=== PATIENT | male | born 1955 | race Caucasian/White ===

== ENCOUNTER 2022-02-22 20:07 | Inpatient (IN) | payer MEDICAID, MEDICARE ==
[~2022-02-22] VITALS: Ht 170.2 cm; Wt 107.0 kg
--- NOTE | 2022-02-22 20:21 | NUR ---
MASOUD FROM [facility] FOR TACHYCARDIA HR 121. PATIENT IN BED 12 ON MONITOR AWAITING MD COY.
--- NOTE | 2022-02-22 20:28 | NUR ---
EMT @ BEDSIDE FOR EKG
--- NOTE | 2022-02-22 20:28 | NUR ---
ER [employer] BANKING OFFICER @ BEDSIDE
--- NOTE | 2022-02-22 20:38 | NUR ---
COVID SWAB DONE AND SENT TO LAB
[2022-02-22] MEDS ORDERED: ACETAMINOPHEN 325 MG TABLET ONE (20:59)
[2022-02-22] MEDS ORDERED: ACETAMINOPHEN 325 MG TABLET PO ONE (21:00)
[2022-02-22 21:09] LABS: BASOPHILS # (AUTO) 0.1 K/uL (0.0-0.2); BASOPHILS % (AUTO) 0.4 % (0.0-2.0); EOSINOPHILS % (AUTO) 0.4 % (0.0-6.0); HEMATOCRIT 37 % (39-51); HEMOGLOBIN 11.9 g/dL (13.5-17.5); LYMPHOCYTES # (AUTO) 0.6 K/uL (0.8-4.8); LYMPHOCYTES % (AUTO) 4.3 % (20.0-44.0); MEAN CORPUSCULAR HGB CONC 32 g/dl (31.0-36.0); MEAN CORPUSCULAR VOLUME 90 fL (80-96); MONOCYTES # (AUTO) 0.5 K/uL (0.1-1.30); MONOCYTES % (AUTO) 3.7 % (2.0-12.0); NEUTROPHILS # (AUTO) 12.8 K/uL (1.8-8.9); NEUTROPHILS % (AUTO) 91.2 % (43.0-81.0); PLATELET COUNT (AUTO) 166 K/uL (150-450); RED BLOOD CELL COUNT(AUTO) 4.08 MIL/uL (4.5-6.0)
[2022-02-22 21:43] LABS: ALANINE AMINOTRANSFERASE 15 U/L (12-78); ALBUMIN 3.3 g/dL (3.4-5.0); ALKALINE PHOSPHATASE 82 U/L (46-116); ASPARTATE AMINOTRANSFERASE 14 U/L (15-37); BILIRUBIN,DIRECT 0.1 mg/dL (0.0-0.2); CALCIUM, SERUM 9.1 mg/dL (8.5-10.1); CARBON DIOXIDE 21 mmol/L (21-32); CHLORIDE 101 mmol/L (98-107); CREATININE 1.8 mg/dL (0.6-1.3); GLUCOSE 278 mg/dL (74-106); LIPASE 445 U/L (73-393); POTASSIUM 4.9 mmol/L (3.5-5.1); SODIUM SERUM 134 mmol/L (136-145); TOTAL PROTEIN, SERUM 8.6 g/dL (6.4-8.2); UREA NITROGEN, BLOOD 48 mg/dL (7-18)
[2022-02-22] MEDS ORDERED: IV NS 0.9% 1,000 ML BAG IV ONE ×2 (22:00→23:00)
[2022-02-22] MEDS ORDERED: PIPERACILLIN /TAZOBACTAM 3.375 G in IV D5W 50 ML IV ONE (22:00)
[2022-02-22] MEDS ORDERED: PIPERACILLIN /TAZOBACTAM 3.375 G VIAL IV ONE (22:03)
--- NOTE | 2022-02-22 22:06 | NUR ---
LACTIC ACID 3.8
[2022-02-22 22:30] LABS: BILIRUBIN,TOTAL 0.3 mg/dL (0.2-1.0)
[2022-02-22] MEDS ORDERED: DILTIAZEM HCL 25 MG IV IV ONE (22:30)
[2022-02-22] MEDS ORDERED: DILTIAZEM HCL 25 MG IV ONE (22:32)
[2022-02-22 23:12] LABS: BILIRUBIN,URINE NEGATIVE (NEGATIVE); LEUKOCYTE ESTERASE ,URINE MODERATE (NEGATIVE); NITRITE, URINE POSITIVE (NEGATIVE); PROTEIN,URINE 100 mg/dl (NEGATIVE); UGLUCOSE NEGATIVE (NEGATIVE); UROBILINOGEN,URINE 0.2 EU/dL (0.2)
[2022-02-22 23:13] LABS: PH,URINE >8.5 (5.0-8.0)
[2022-02-22 23:14] LABS: COLOR,URINE YELLOW (YELLOW)
[2022-02-22 23:26] LABS: BACTERIA,URINE Many /HPF (None Seen)
[2022-02-22 23:27] LABS: SQUAMOUS EPITHELIAL CELL,UR None Seen /HPF (None Seen); TRIPLE PHOSPHATE CRYSTAL,UR Many /HPF (None Seen)
[2022-02-23] MEDS ORDERED: MAGNESIUM HYDROXIDE 30 ML UDC PO PRN
[2022-02-23] MEDS ORDERED: ZOLPIDEM TARTRATE 5 MG TABLET PO PRN
[2022-02-23] MEDS ORDERED: MAG HYDROX/AL HYDROX/SIMETH 30 ML UDC PO PRN
[2022-02-23] MEDS ORDERED: PIPERACILLIN /TAZOBACTAM 3.375 G in IV D5W 50 ML IV SCH ×2
[2022-02-23] MEDS ORDERED: Z GUARD REMEDY 4 OZ OINT TP PRN
[2022-02-23] MEDS ORDERED: ONDANSETRON HCL/PF 4 MG/2 ML VIAL IVP PRN
[2022-02-23] MEDS ORDERED: IV NS 0.9% 1,000 ML IV SCH
--- NOTE | 2022-02-23 00:55 | NUR ---
REPORT GIVEN TO CHARGE NURSE
--- NOTE | 2022-02-23 01:10 | NUR ---
PATIENT BEING TRANSFERRED VIA ACLS PROTOCOL.
--- NOTE | 2022-02-23 01:10 | NUR ---
RN NOTES ADMITTED A 66 Y/O MALE PATIENT FROM ER VIA [facility] A/O X1. WITH STALEY CATHETER CONNECTED TO URINE BAG DRAINING YELLOWISH URINE, WITH COLOSTOMY BAG INTACT. WITH IV ACCESS AT R UA MIDLINE #18 PATENT FLUSHES WELL. VITAL SIGNS TAKEN AND RECORDED, FEBRILE 100.1. SAFELY TRANSFER PATIENT TO BED. BODY ASSESSMENT DONE. PICTURE TAKEN. BELONGINGS CHECKED AND RECORD. ALL SAFETY MEASURES IN PLACE AT ALL TIMES. HOB ELEVATED. CALL LIGHT WITHIN REACH. BED ON LOWEST POSITION AND LOCKED. WILL CONTINUE TO MONITOR THE PATIENT
[2022-02-23 01:57] VITALS: BP 115/67
--- NOTE | 2022-02-23 02:20 | NUR ---
RN NOTES LACTIC ACID 3.5
--- NOTE | 2022-02-23 03:28 | NUR ---
RN NOTES LACTIC ACID 3.1
[2022-02-23 04:00] VITALS: BP 117/68
[2022-02-23] MEDS ORDERED: PIPERACILLIN /TAZOBACTAM 3.375 G in IV D5W 50 ML IV ONE (04:00)
[2022-02-23] MEDS ORDERED: PIPERACILLIN /TAZOBACTAM 3.375 G VIAL IV ONE (04:15)
--- NOTE | 2022-02-23 06:45 | NUR ---
RN NOTES PATIENT REMAINS STABLE NO SIGNIFICANT CHANGES. ALL DUE MEDS GIVEN ORDERED. ON IVF NS@ 100CC/HR. STALEY INTACT DRAINING WELL. COLOSTOMY TUBE INTACT AND CHANGES. PATIENT AFEBRILE. ALL SAFETY MEASURES IN PLACE. HOB ELEVATED. CALL LIGHT WITHIN REACH. WILL ENDORSED TO MORNING SHIFT FOR J[facility].
--- NOTE | 2022-02-23 07:35 | NUR ---
RN OPENING NOTE PATIENT RECEIVED IN BED, SLEEPING. PATIENT ON ROOM AIR WITH NO SIGNS OF LABORED BREATHING AT THIS TIME. STALEY CATH IN PLACE, PATENT AND DRAINING CLEAR URINE. COLOSTOMY BAG IN PLACE. RIGHT UA MIDLINE AND RIGHT BASILIC 20G SL IN PLACE RUNNING NS AT 100CC/HR. NO SIGNS OF ACUTE DISTRESS NOTED AT THIS TIME. BED LOCKED AND IN LOWEST POSITION, CALL LIGHT WITHIN REACH, 2 SIDE RAILS UP. WILL CONTINUE TO MONITOR.
[2022-02-23 08:00] VITALS: BP 106/61
[2022-02-23] MEDS: ACETAMINOPHEN 325 MG TABLET PO PRN ×2 (08:29→17:36)
[2022-02-23] MEDS ORDERED: IV NS 0.9% 1,000 ML IV ONE (10:00)
[2022-02-23 12:00] VITALS: BP 144/71
[2022-02-23 12:08] LABS: BASOPHILS % (AUTO) 0.2 % (0.0-2.0); EOSINOPHILS % (AUTO) 0.8 % (0.0-6.0); HEMATOCRIT 31 % (39-51); LYMPHOCYTES # (AUTO) 1.2 K/uL (0.8-4.8); LYMPHOCYTES % (AUTO) 9.2 % (20.0-44.0); MEAN CORPUSCULAR HGB CONC 32 g/dl (31.0-36.0); MEAN CORPUSCULAR VOLUME 90 fL (80-96); MONOCYTES # (AUTO) 0.6 K/uL (0.1-1.30); MONOCYTES % (AUTO) 4.9 % (2.0-12.0); NEUTROPHILS % (AUTO) 84.9 % (43.0-81.0); PLATELET COUNT (AUTO) 140 K/uL (150-450); RED BLOOD CELL COUNT(AUTO) 3.43 MIL/uL (4.5-6.0); WHITE BLOOD COUNT (AUTO) 12.9 K/uL (4.3-11.0)
[2022-02-23 12:21] LABS: CALCIUM, SERUM 8.4 mg/dL (8.5-10.1); CREATININE 1.7 mg/dL (0.6-1.3); MAGNESIUM 1.6 mg/dL (1.8-2.4); POTASSIUM 3.9 mmol/L (3.5-5.1)
[2022-02-23] MEDS: IV NS 0.9% 1,000 ML IV PRN (12:48)
[2022-02-23] MEDS: PIPERACILLIN /TAZOBACTAM 3.375 G in IV D5W 100 ML IV SCH ×2 (12:48→20:53)
[2022-02-23 16:00] VITALS: BP 118/54
--- NOTE | 2022-02-23 18:42 | NUR ---
RN CLOSING NOTE PATIENT REMAINS IN BED, RESTING. PATIENT ON ROOM AIR WITH NO SIGNS OF LABORED BREATHING AT THIS TIME. STALEY CATH IN PLACE, PATENT AND DRAINING CLEAR URINE. COLOSTOMY BAG IN PLACE. RIGHT UA MIDLINE AND RIGHT BASILIC 20G SL IN PLACE RUNNING NS AT 100CC/HR. ALL NEEDS ATTENDED DURING SHIFT. NO SIGNS OF ACUTE DISTRESS NOTED AT THIS TIME. BED LOCKED AND IN LOWEST POSITION, CALL LIGHT WITHIN REACH, 2 SIDE RAILS UP. WILL ENDORSE TO LEAD ORACLE DEVELOPER NURSE.
[2022-02-23 20:00] VITALS: BP 118/57
--- NOTE | 2022-02-23 20:09 | NUR ---
RN NOTE RECEIVED PT IN BED, AWAKE, WATCHING TV AOX2. PT ON TELE MONITOR SHOWS SR WITH HR 72. DENIES ANY CHEST PAIN OR SOB. ERNIE ML PATENT AND INTACT, NS RUNNING 100ML/HR. PT WITH STALEY CATH IN PLACE, DRAINING YELLOW URINE.ALL SAFETY IN PLACE. WILL CONTINUE TO MONITOR.
[2022-02-23] MEDS: DOXYCYCLINE HYCLATE (100 MG) 100 MG TABLET PO SCH (20:55)
--- NOTE | 2022-02-23 23:13 | NUR ---
RN NOTE PT WITH FSBS OF 248. MANUFACTURING COORDINATOR DR ADAM NOTIFIED. PT ON ADMELOG INSULIN SL[facility]ING SCALE AT [facility], PER MD TO CONTINUE MED. CALLED [facility], ADMELOG IS SAME WITH HUMALOG. ORDER NOTED AND CARRIED OUT.
[2022-02-23] MEDS ORDERED: INSULIN LISPRO/ASPART 100 UNIT/ML CARTRIDGE SQ ONE (23:30)
[2022-02-23] MEDS ORDERED: DEXTROSE 50%-WATER 50 ML DISP.SYRIN IV PRN (23:30)
[2022-02-23] MEDS: BLOOD SUGAR DIAGNOSTIC 1 EACH STRIP IN SCH (23:53)
[2022-02-23] MEDS: INSULIN ASPART/LISPRO 100 UNIT/ML CARTRIDGE SQ PRN (23:54)
[2022-02-24] VITALS (7 sets, daily range): BP systolic 108–135; BP diastolic 69–80
[2022-02-24] MEDS: IV NS 0.9% 1,000 ML IV PRN ×3 (00:40→23:55)
[2022-02-24] MEDS: ACETAMINOPHEN 325 MG TABLET PO PRN ×3 (00:40→23:55)
[2022-02-24] MEDS ORDERED: MAGN400O21 PO (05:08)
[2022-02-24] MEDS ORDERED: SENN-18 PO (05:08)
[2022-02-24] MEDS ORDERED: OMEP40CA21 PO (05:08)
[2022-02-24] MEDS ORDERED: LEVO75TA PO (05:08)
[2022-02-24] MEDS ORDERED: HYDR-3980 PO (05:08)
[2022-02-24] MEDS ORDERED: HYDR-4209 PO (05:08)
[2022-02-24] MEDS ORDERED: FERR325T23 PO (05:08)
[2022-02-24] MEDS ORDERED: DOCU-141 PO (05:08)
[2022-02-24] MEDS ORDERED: METF-442 PO (05:08)
[2022-02-24] MEDS ORDERED: MIDO2.5T PO (05:08)
[2022-02-24] MEDS ORDERED: ASCO100058 PO (05:08)
[2022-02-24] MEDS ORDERED: EPOE40007 SQ (05:08)
[2022-02-24] MEDS ORDERED: ASPI-1169 PO (05:08)
[2022-02-24] MEDS ORDERED: RISP1TAB7 PO (05:08)
[2022-02-24] MEDS ORDERED: RISP2TAB5 PO (05:08)
[2022-02-24] MEDS ORDERED: GABA-532 PO (05:08)
[2022-02-24] MEDS: PIPERACILLIN /TAZOBACTAM 3.375 G in IV D5W 100 ML IV SCH ×3 (05:22→20:30)
--- NOTE | 2022-02-24 06:37 | NUR ---
RN NOTE PT AWAKE, NO CHANGES IN LOC NOTED. NOT IN ANY DISTRESS. TOLERATING RA. DENIES PAIN OR ANY SOB. REMAIN ON TELE MONITORING SHOWS SR WITH HR OF 77. REMAIN AFEBRILE. STALEY DRAINING WELL. CHANGED COLOSTOMY BAG. NO S/SX OF HYPO/HYPERGLYCEMIA. WOUND TX DONE, TURNED AND REPOSITIONED. WILL ENDORSE TO NEXT SHIFT NURSE FOR [facility].
[2022-02-24 07:15] LABS: BASOPHILS % (AUTO) 0.3 % (0.0-2.0); EOSINOPHILS % (AUTO) 3.3 % (0.0-6.0); HEMATOCRIT 32 % (39-51); HEMOGLOBIN 10.2 g/dL (13.5-17.5); LYMPHOCYTES # (AUTO) 2.2 K/uL (0.8-4.8); LYMPHOCYTES % (AUTO) 19.9 % (20.0-44.0); MEAN CORPUSCULAR HGB CONC 32 g/dl (31.0-36.0); MEAN CORPUSCULAR VOLUME 90 fL (80-96); MONOCYTES # (AUTO) 0.7 K/uL (0.1-1.30); MONOCYTES % (AUTO) 6.4 % (2.0-12.0); NEUTROPHILS # (AUTO) 7.9 K/uL (1.8-8.9); NEUTROPHILS % (AUTO) 70.1 % (43.0-81.0); PLATELET COUNT (AUTO) 156 K/uL (150-450); RED BLOOD CELL COUNT(AUTO) 3.51 MIL/uL (4.5-6.0); WHITE BLOOD COUNT (AUTO) 11.2 K/uL (4.3-11.0)
--- NOTE | 2022-02-24 07:30 | NUR ---
RN OPENING NOTES RECEIVED PATIENT IN BED, AWAKE, ALERT AND VERBALLY RESPONSIVE. NO SIGNS OF ACUTE DISTRESS NOTED. ON ROM AIR, TOLERATING WELL, NO SOB NOTED, SPO2 98%. ON TELE MONITOR SHOWING SINUS RHYTHM @74. NOTED WITH IV ACCESS ON RIGHT HAND #24G AND RIGHT UPPER ARM MIDLINE RUNNING NS @ 100ML/HR. WITH F/C INTACT DRAINING CLEAR YELLOW URINE. COLOSTOMY BAG IN PLACE, NO OUTPUT AT THIS TIME. SAFETY MEASURES IN PLACE, BED IN LOWEST AND LOCKED POSITION, SR UP, CALL LIGHT PLACED WITHIN EASY REACH. WILL CONTINUE TO MONITOR PATIENT.
[2022-02-24 07:31] LABS: CALCIUM, SERUM 8.6 mg/dL (8.5-10.1); CREATININE 1.4 mg/dL (0.6-1.3); MAGNESIUM 1.4 mg/dL (1.8-2.4); PHOSPHORUS 2.5 mg/dL (2.5-4.9); POTASSIUM 3.5 mmol/L (3.5-5.1)
[2022-02-24] MEDS: BLOOD SUGAR DIAGNOSTIC 1 EACH STRIP IN SCH ×4 (07:34→22:05)
[2022-02-24] MEDS: INSULIN ASPART/LISPRO 100 UNIT/ML CARTRIDGE SQ PRN ×4 (07:37→22:04)
[2022-02-24] MEDS: DOXYCYCLINE HYCLATE (100 MG) 100 MG TABLET PO SCH ×2 (08:34→20:30)
[2022-02-24] MEDS: Magnesium 1GM/D5W 100ML PREMIX 100 ML IV SCH ×4 (10:35→13:36)
[2022-02-24] MEDS ORDERED: NA P133E RC (11:07)
[2022-02-24] MEDS ORDERED: FOLI0.4T6 PO (11:07)
[2022-02-24] MEDS ORDERED: INSU100V36 SQ (11:07)
[2022-02-24] MEDS ORDERED: HEPA50007 SQ (11:07)
[2022-02-24] MEDS ORDERED: THIA100T74 PO (11:07)
[2022-02-24] MEDS ORDERED: MAGN400O6 PO (11:07)
[2022-02-24] MEDS ORDERED: AMIN30LI2 PO (11:07)
[2022-02-24] MEDS ORDERED: CITR473S PO (11:07)
[2022-02-24] MEDS ORDERED: IPRA3AMP23 IH (11:07)
[2022-02-24] MEDS ORDERED: RISP0.2515 PO ×2 (11:07)
[2022-02-24] MEDS ORDERED: ALBU8.5H8 IH (11:07)
[2022-02-24] MEDS ORDERED: ACET-868 PO (11:07)
[2022-02-24] MEDS ORDERED: PSYL1PAC8 PO (11:07)
[2022-02-24] MEDS ORDERED: MULT-447 PO (11:07)
[2022-02-24] MEDS ORDERED: BISA10SU11 RC (11:07)
[2022-02-24] MEDS ORDERED: POLY17PO4 PO (11:07)
--- NOTE | 2022-02-24 18:41 | NUR ---
RN CLOSING NOTES PATIENT RESTING IN BED. NO SIGNS OF ACUTE DISTRESS NOTED. STABLE ON ROM AIR, NO SOB NOTED, SPO2 98%. WITH IV ACCESS ON RIGHT HAND #24G, SL AND RIGHT UPPER ARM MIDLINE RUNNING NS @ 100ML/HR. WITH F/C INTACT DRAINING CLEAR YELLOW URINE. COLOSTOMY BAG IN PLACE. SAFETY MEASURES IN PLACE, BED IN LOWEST AND LOCKED POSITION, SR UP, CALL LIGHT PLACED WITHIN EASY REACH. WILL ENDORSE TO NEXT SHIFT FOR CONTINUITY OF CARE..
--- NOTE | 2022-02-24 19:47 | NUR ---
RN OPENING NOTES RECEIVED CARE OF PATIENT WHILE PATIENT IN BED, A/O X2, CONFUSED, ABLE TO VERBALIZE NEEDS. PATIENT IN NO DISCOMFORT OR PAIN AT THIS TIME. PATIENT ON ROOM AIR, NO SOB NOTED, BREATHING EVEN AND UNLABORED, O2 SAT 96%. PATIENT NOTED WITH IV ACCESS ON RIGHT HAND #24G AND RIGHT UPPER ARM MIDLINE RUNNING NS @ 100ML/HR. WITH STALEY CATH INTACT DRAINING CLEAR YELLOW URINE. COLOSTOMY BAG IN PLACE, NO OUTPUT AT THIS TIME. SAFETY MEASURES IN PLACE, BED IN LOWEST AND LOCKED POSITION, SIDE RAILS UP X2, CALL LIGHT PLACED WITHIN EASY REACH. WILL CONTINUE TO MONITOR PATIENT.
--- NOTE | 2022-02-24 22:07 | NUR ---
RN NOTES BLOOD GLUCOSE 271. WILL ADMINISTER 6 UNITS ASPART/LISPRO INSULIN PER SLIDING SCALE ORDERS. WILL ASSESS GLUCOSE IN 3 HOURS TO PREVENT AM HYPOGLYCEMIA.
[2022-02-25 04:00] VITALS: BP 134/73
[2022-02-25] MEDS: PIPERACILLIN /TAZOBACTAM 3.375 G in IV D5W 100 ML IV SCH ×2 (06:18→12:20)
--- NOTE | 2022-02-25 07:00 | NUR ---
RN OPENING NOTES PATIENT ENDORSED BY OUTGOING NURSE FOR CONTINUITY OF CARE. PATIENT IN BED, A/O X4, ABLE TO VERBALIZE NEEDS. PATIENT IN NO DISCOMFORT OR PAIN AT THIS TIME. PATIENT ON ROOM AIR, BREATHING EVEN AND UNLABORED, NO SOB NOTED. WITH IV ACCESS ON RIGHT HAND #24G AND RIGHT UPPER ARM MIDLINE INTACT, WITH IVF OF NS @100ML/HR INFUSING WELL. ON TELE MONITOR NO DISTRESS OR SOB NOTED. NO SIGNIFICANT FINDINGS UPON INITIAL NURSING ASSESSMENTS. SAFETY MEASURES IN PLACE. BED IN LOWEST AND LOCKED POSITION, SR UP X2, CALL LIGHT PLACED WITHIN EASY REACH. WILL CONTINUE TO MONITOR PATIENT.
[2022-02-25 07:43] LABS: BASOPHILS % (AUTO) 0.4 % (0.0-2.0); EOSINOPHILS % (AUTO) 4.7 % (0.0-6.0); HEMOGLOBIN 12.1 g/dL (13.5-17.5); LYMPHOCYTES # (AUTO) 2.3 K/uL (0.8-4.8); MONOCYTES # (AUTO) 0.5 K/uL (0.1-1.30)
[2022-02-25] MEDS: BLOOD SUGAR DIAGNOSTIC 1 EACH STRIP IN SCH ×2 (07:45→12:06)
[2022-02-25 07:51] LABS: HEMATOCRIT 37 % (39-51); LYMPHOCYTES % (AUTO) 27.5 % (20.0-44.0); MEAN CORPUSCULAR HGB CONC 33 g/dl (31.0-36.0); MEAN CORPUSCULAR VOLUME 89 fL (80-96); MONOCYTES % (AUTO) 6.4 % (2.0-12.0); NEUTROPHILS # (AUTO) 5.1 K/uL (1.8-8.9); PLATELET COUNT (AUTO) 168 K/uL (150-450); RED BLOOD CELL COUNT(AUTO) 4.12 MIL/uL (4.5-6.0); WHITE BLOOD COUNT (AUTO) 8.4 K/uL (4.3-11.0)
[2022-02-25] MEDS: INSULIN ASPART/LISPRO 100 UNIT/ML CARTRIDGE SQ PRN ×2 (07:52→12:08)
[2022-02-25 08:00] VITALS: BP 145/78
[2022-02-25] MEDS: DOXYCYCLINE HYCLATE (100 MG) 100 MG TABLET PO SCH (08:24)
[2022-02-25 08:36] LABS: CALCIUM, SERUM 9.4 mg/dL (8.5-10.1); CREATININE 1.4 mg/dL (0.6-1.3); MAGNESIUM 2.1 mg/dL (1.8-2.4); PHOSPHORUS 3.3 mg/dL (2.5-4.9); POTASSIUM 4.2 mmol/L (3.5-5.1)
[2022-02-25] MEDS ORDERED: DOXY100T2 PO (10:48)
[2022-02-25] MEDS ORDERED: AMOX500C2 PO (10:48)
--- NOTE | 2022-02-25 15:36 | NUR ---
Discharge Notes Patient signed all appropriate discharged papers and all belongings returned to patient. Education provided to patient. Patient was sent an electronic prescription to fill at the pharmacy of choice. Patient was discharged to [facility] and was taken with Ambulance via [place]. Patient IV and ID bands was removed and catheter was still intact. Patient had no complains of pain and was in stable condition. Assistance was provided as needed. Patient left @0036
== END 2022-02-25 15:33 | DRG 720 ==
LOC: ER 20:15 → TELE1 02-23 00:26
PROVIDERS: ADMIT Family Medicine; ATTEND Registered Nurse
PROC: 05HB33Z Insertion of Infusion Device into Right Basilic Vein, Percutaneous Approach (ICD-10-PCS; principal; 2022-02-23)
DX: A41.9 Sepsis, unspecified organism (principal); N17.0 Acute kidney failure with tubular necrosis; E87.2 Acidosis; L89.150 Pressure ulcer of sacral region, unstageable; E44.1 Mild protein-calorie malnutrition; D63.8 Anemia in other chronic diseases classified elsewhere; E87.1 Hypo-osmolality and hyponatremia; E88.09 Other disorders of plasma-protein metabolism, not elsewhere classified; E86.1 Hypovolemia; I48.91 Unspecified atrial fibrillation; N39.0 Urinary tract infection, site not specified; Z20.822 Contact with and (suspected) exposure to COVID-19; F31.9 Bipolar disorder, unspecified; E11.65 Type 2 diabetes mellitus with hyperglycemia; N18.9 Chronic kidney disease, unspecified; E66.9 Obesity, unspecified; Z68.37 Body mass index [BMI] 37.0-37.9, adult; B96.89 Other specified bacterial agents as the cause of diseases classified elsewhere
CPT/HCPCS: 36415; 71045-TC; 80048-TC; 80076-TC; 81001; 82962-TC; 83605-TC; 83690-TC; 83735-TC; 84100-TC; 84484-TC; 85025-TC; 87040-TC; 87086-TC; A6253; A6403; C9803; G0378; J1815; J2543; J3475; J3490; J7030; J7050; J7060